=== PATIENT | female | born 1965 | race Caucasian/White ===

== ENCOUNTER → 2018-04-11 | Outpatient (CLI) | payer BC ==
--- NOTE | 2018-04-14 07:35 | MM ---
Reason for exam: screening (asymptomatic). Last mammogram was performed 1 year and 2 months ago. History: Patient is postmenopausal. Physical Findings: A clinical breast exam by your physician is recommended on an annual basis and results should be correlated with mammographic findings. MG 3D Screening Mammo W/Cad Bilateral CC and MLO view(s) were taken. Prior study comparison: February 08, 2017, bilateral MG screening mammo w CAD. November 25, 2015, bilateral MG 3d screening mammo w/cad. The breast tissue is heterogeneously dense. This may lower the sensitivity of mammography. There is no discrete abnormality. Asymmetric breast tissue right upper aspect, stable. ASSESSMENT: Negative, BI-RAD 1 RECOMMENDATION: Routine screening mammogram of both breasts in 1 year.
== END | disposition home or self-care (01) ==
LOC: RADMAMWWP 09:50
PROVIDERS: ATTEND Family Medicine
DX: Z12.31 Encounter for screening mammogram for malignant neoplasm of breast (principal)
CPT/HCPCS: 77063; 77067

== ENCOUNTER → 2019-05-15 | Outpatient (CLI) | payer BC ==
--- NOTE | 2019-05-15 13:14 | MM ---
Reason for exam: screening (asymptomatic). Last mammogram was performed 1 year and 1 month ago. History: Patient is postmenopausal. Physical Findings: A clinical breast exam by your physician is recommended on an annual basis and results should be correlated with mammographic findings. MG 3D Screening Mammo W/Cad Bilateral CC and MLO view(s) were taken. Prior study comparison: April 11, 2018, bilateral MG 3d screening mammo w/cad. February 08, 2017, bilateral MG screening mammo w CAD. The breast tissue is heterogeneously dense. This may lower the sensitivity of mammography. No suspicious abnormality. No significant changes when compared with prior studies. ASSESSMENT: Negative, BI-RAD 1 RECOMMENDATION: Routine screening mammogram of both breasts in 1 year. Manage patient on a clinical basis. Diffuse, nonfocal, bilatral breast tenderness. If there is focal pain diagnostic exam and ultrasound would be recommended.
== END | disposition home or self-care (01) ==
LOC: RADMAMWWP 09:52
PROVIDERS: ATTEND Family Medicine
DX: Z12.31 Encounter for screening mammogram for malignant neoplasm of breast (principal)
CPT/HCPCS: 77063; 77067

== ENCOUNTER 2020-01-07 16:42 | Emergency (ER) | payer BC, OTHER ==
[2020-01-07 17:01] VITALS: BP 124/78; PULSE 78; RESP 18
[2020-01-07 17:02] VITALS: TEMP 97.8
[2020-01-07] MEDS ORDERED: LIDOCAINE 1% INJ 10MG/ML (20 ML MDV) SQ ONE (17:16)
[2020-01-07] MEDS ORDERED: DIPH,PERTUS(ACELL)TETVAC-LF 0.5 ML VIAL IM ONE (17:16)
--- NOTE | 2020-01-07 17:33 | XR ---
EXAMINATION TYPE: XR finger RT DATE OF EXAM: 01/07/2020 COMPARISON: NONE HISTORY: Laceration TECHNIQUE: 3 views FINDINGS: There is soft tissue deformity at the anterior distal phalanx of the index finger right ayers d relate to laceration. I see no sign of a foreign body. There is no evidence of a fracture. Joint sp aces are normal. IMPRESSION: Laceration deformity. No fracture seen.
[2020-01-07] MEDS ORDERED: BACITRACIN OINT 1 EACH PACKET TOPICAL ONE (17:50)
--- NOTE | 2020-01-07 17:51 | ED ---
Wound/Laceration HPI - General Chief Complaint: Wound/Laceration Stated Complaint: [facility] hand injury Time Seen by Provider: 01/07/20 17:10 Source: patient, RN notes reviewed Mode of arrival: ambulatory Limitations: no limitations - History of Present Illness Initial Comments: This a 54-year-old female sent emergency Department chief complaint of laceratio n to her right hand second digit. Patient states she closed in a door at her work. 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 Patient is unsure when her last tetanus was. Patient states has 2 lacerations states her was significantly mild bleeding initially. - Related Data Previous Rx's Medication Instructions Recorded Acetaminophen-Codeine 300-30mg 1 tab PO Q6H PRN #20 tablet 06/09/14 [Tylenol #3] Ibuprofen [Motrin] 600 mg PO Q8HR PRN #30 tab 06/09/14 Ondansetron Odt [Zofran Odt] 4 mg PO Q8HR PRN #10 tab 06/09/14 Allergies Allergy/AdvReac Type Severity Reaction Status Date / Time Penicillins Allergy Unknown Verified 01/07/20 17:01 Childhood azithromycin [From Zithromax] AdvReac Nausea & Verified 01/07/20 17:01 Vomiting tramadol HCl [From Ultram] AdvReac Rash/Hives Verified 01/07/20 17:01 Review of Systems ROS Statement: Those systems with pertinent positive or pertinent negative responses have been documented in the HPI. ROS Other: All systems not noted in ROS Statement are negative. Past Medical History Past Medical History: Hypertension Additional Past Medical History / Comment(s): diverticulitits History of Any Multi-Drug Resistant Organisms: None Reported Additional Past Surgical History / Comment(s): diverticulitis Past Psychological History: No Psychological Hx Reported Smoking Status: Current every day smoker Past Alcohol Use History: Rare Past Drug Use History: None Reported General Exam Limitations: no limitations General appearance: alert, in no apparent distress Head exam: Present: atraumatic, normocephalic, normal inspection Eye exam: Present: normal appearance, PERRL, EOMI. Absent: scleral icterus, conjunctival injection, periorbital swelling Respiratory exam: Present: normal lung sounds bilaterally. Absent: respiratory distress, wheezes, rales, rhonchi, stridor Cardiovascular Exam: Present: regular rate, normal rhythm, normal heart sounds. Absent: systolic murmur, diastolic murmur, rubs, gallop, clicks Extremities exam: Present: other (Right hand second digit there is 21 cm lacerations on the distal portion patient has full range of motion neurovascular intact) Course Vital Signs 01/07/20 16:57 Temperature 97.8 F Pulse Rate 78 Respiratory 18 Rate Blood Pressure 124/78 O2 Sat by Pulse 99 Oximetry Procedures - Laceration Laceration #1 Consent Obtained: verbal consent Indication: laceration Site: hand Size (cm): 1 Description: irregular Depth: simple, single layer Anesthetic Used: lidocaine 1%, without epi Anesthesia Technique: local infiltration Amount (mls): 2 Pre-repair: wound explored, irrigated extensively, deep structures intact Type of Sutures: nylon Size of Sutures: 4-0 Number of Sutures: 3 Technique: simple, interrupted Patient Tolerated Procedure: well, no complications Laceration #2 Consent Obtained: verbal consent Indication: laceration Site: hand (Right) Size (cm): 1 Description: irregular Depth: simple, single layer Anesthetic Used: lidocaine 1%, without epi Anesthesia Technique: local infiltration Amount (mls): 2 Pre-repair: wound explored, irrigated extensively, deep structures intact Type of Sutures: nylon Size of Sutures: 4-0 Number of Sutures: 4 Technique: simple, interrupted Patient Tolerated Procedure: well, no complications Medical Decision Making - Medical Decision Making X-ray does not reveal any acute fracture. Patient to lacerations closed with 7 sutures. Return parameters discussed wound care was discussed Disposition Clinical Impression: Laceration of finger of right hand Disposition: HOME SELF-CARE Condition: Stable Instructions (If sedation given, give patient instructions): Care For Your Stitches (ED), Finger Laceration (ED) Additional Instructions: Has sutures removed in 10 days.Please return to the Emergency Department if symptoms worsen or any other concerns. Is patient prescribed a controlled substance at d/c from ED?: No Referrals: Jovi Santizo DO [Primary Care Provider] - 1-2 days Time of Disposition: 17:51
== END 2020-01-07 18:14 | disposition home or self-care (01) ==
LOC: EC 16:42
DX: S61.210A Laceration without foreign body of right index finger without damage to nail, initial encounter (principal); Z88.0 Allergy status to penicillin; Z88.1 Allergy status to other antibiotic agents; Z88.6 Allergy status to analgesic agent; F17.200 Nicotine dependence, unspecified, uncomplicated; Z23 Encounter for immunization; W23.0XXA Caught, crushed, jammed, or pinched between moving objects, initial encounter; Y92.69 Other specified industrial and construction area as the place of occurrence of the external cause; Y99.0 Civilian activity done for income or pay
CPT/HCPCS: 73140; 90715; 99283; 90471; 12001; J2001

== ENCOUNTER → 2020-04-15 | Outpatient (CLI) | payer BC ==
--- NOTE | 2020-04-15 11:59 | XR ---
EXAMINATION TYPE: XR sacrum coccyx, XR sacroiliac joint comp BILAT DATE OF EXAM: 04/15/2020 CLINICAL HISTORY: pain TECHNIQUE: Three views of the sacrum and coccyx are submitted. Bilateral SI joint evaluation was als o performed. COMPARISON: None Sacral alae appear symmetric. No evidence for fracture or bony lesion. Sacroiliac joints are within normal limits. Visualized coccygeal segments are free of fracture or lesion. IMPRESSION: Normal study
== END | disposition home or self-care (01) ==
LOC: RADXRYALE 11:12
PROVIDERS: ATTEND Physician Assistant Medical
DX: M53.3 Sacrococcygeal disorders, not elsewhere classified (principal)
CPT/HCPCS: 72202; 72220

== ENCOUNTER → 2020-08-01 | Outpatient (CLI) | payer BC ==
--- NOTE | 2020-08-01 13:10 | XR ---
EXAMINATION TYPE: XR abdomen 2V DATE OF EXAM: 08/01/2020 12:10 PM CLINICAL HISTORY: Bright red blood in stool TECHNIQUE: Single supine KUB image of the abdomen is obtained. COMPARISON: None. FINDINGS: Nonspecific, nonobstructive bowel gas pattern. There is stool and gas scattered throughout the colon. Presumed calcified pelvic phleboliths. No definite renal or ureteral calculi. Mild degener ative changes of the thoracic spine and hips. IMPRESSION: 1. Nonspecific, nonobstructive bowel gas pattern.
== END ==
LOC: RADXRYALE 11:57
PROVIDERS: ATTEND Physician Assistant Medical
DX: R10.817 Generalized abdominal tenderness (principal)
CPT/HCPCS: 74019

== ENCOUNTER → 2020-09-16 | Outpatient (CLI) | payer BC ==
--- NOTE | 2020-09-20 08:56 | MM ---
Reason for exam: screening (asymptomatic). Last mammogram was performed 1 year and 4 months ago. History: Patient is postmenopausal. Physical Findings: A clinical breast exam by your physician is recommended on an annual basis and results should be correlated with mammographic findings. MG 3D Screening Mammo W/Cad Bilateral CC and MLO view(s) were taken. Prior study comparison: May 15, 2019, bilateral MG 3d screening mammo w/cad. April 11, 2018, bilateral MG 3d screening mammo w/cad. There are scattered fibroglandular densities. ASSESSMENT: Negative, BI-RAD 1 RECOMMENDATION: Routine screening mammogram of both breasts in 1 year.
== END | disposition home or self-care (01) ==
LOC: RADMAMWWP 11:11
PROVIDERS: ATTEND Family Medicine
DX: Z12.31 Encounter for screening mammogram for malignant neoplasm of breast (principal); Z78.0 Asymptomatic menopausal state
CPT/HCPCS: 77063; 77067

== ENCOUNTER → 2022-11-23 | Outpatient (CLI) | payer BC ==
--- NOTE | 2022-11-26 10:07 | MM ---
Reason for Exam: Screening (asymptomatic). Last mammogram was performed 2 year(s) and 2 month(s) ago. Patient History: Menarche at age 12. First Full-Term at age 22. Postmenopausal. Risk Values: Jolly 5 year model risk: 1.2%. NCI Lifetime model risk: 7.9%. Prior Study Comparison: 04/11/2018 Bilateral Screening Mammogram, [facility]. 05/15/2019 Bilateral Screening Mammogram, [facility]. 09/16/2020 Bilateral Screening Mammogram, [facility]. Tissue Density: There are scattered fibroglandular densities. Findings: Analyzed By CAD. There is no suspicious group of microcalcifications or new suspicious mass in either breast. Overall Assessment: Negative, BI-RAD 1 Management: Screening Mammogram of both breasts in 1 year. . Patient should continue monthly self-breast exams. A clinical breast exam by your physician is recommended on an annual basis. This exam should not preclude additional follow-up of suspicious palpable abnormalities. Note on Jolly scores and lifetime risk: 1. A Jolly score greater than 3% is considered moderate risk. If this is the case, consider specialist referral to assess eligibility for a risk reducing agent. 2. If overall lifetime risk for the development of breast cancer is 20% or higher, the patient may qualify for future screening with alternating mammogram and breast MRI. Electronically signed and approved by: Ziggy Reyes M.D. Radiologis
== END | disposition home or self-care (01) ==
LOC: RADMAMWWP 14:59
PROVIDERS: ATTEND Family Medicine
DX: Z12.31 Encounter for screening mammogram for malignant neoplasm of breast (principal); Z78.0 Asymptomatic menopausal state
CPT/HCPCS: 77063; 77067

== ENCOUNTER → 2023-06-21 | Outpatient (CLI) | payer BC ==
--- NOTE | 2023-06-21 10:24 | XR ---
EXAMINATION TYPE: XR lumbosacral spine min 4V DATE OF EXAM: 06/21/2023 CLINICAL HISTORY: pain COMPARISON: NONE TECHNIQUE: Frontal, lateral, and oblique images of the lumbar spine are obtained. FINDINGS: There are 5 lumbar type vertebral bodies identified. The lumbar spine shows satisfactory alignment without evidence of acute fracture or dislocation. Vertebral body heights are within normal limits. Vacuum disc at L5-S1. Mild degenerative narrowing at L1-2 and L2-3. Mild scattered ventral s pondylosis. Moderate lower lumbar facet joint arthropathy. The overlying soft tissue appears unrema rkable. IMPRESSION: No acute fracture or dislocation is seen in the lumbar spine.ICD 10 NO FRACTURE, INITIAL EVALUATION
--- NOTE | 2023-06-21 10:26 | XR ---
EXAMINATION TYPE: XR cervical spine comp DATE OF EXAM: 06/21/2023 CLINICAL HISTORY: pain COMPARISON: NONE TECHNIQUE: Frontal, lateral, oblique, swimmers, and open mouth view of the cervical spine are obtaine d. FINDINGS: The cervical spine is visualized in its entirety from C1 thru the top of T1 level. It is s atisfactory in alignment without evidence of acute fracture or dislocation. The pre-vertebral soft t issue appears within normal limits. Mild degenerative disc space narrowing C5-6 and C6-7. The C1-C2 a rticulation is unremarkable on the open mouth view. The oblique images are within normal limits. IMPRESSION: No acute fracture or dislocation is seen in the cervical spine.ICD 10 NO FRACTURE, INITI AL EVALUATION
== END | disposition home or self-care (01) ==
LOC: RADXRYALE 09:57
PROVIDERS: ATTEND Physician Assistant Medical
DX: M54.41 Lumbago with sciatica, right side (principal)
CPT/HCPCS: 72050; 72110

== ENCOUNTER 2024-05-25 17:57 | Emergency (ER) | payer BC, OTHER ==
--- NOTE | 2024-05-25 18:26 | ED ---
General Adult HPI - General Chief complaint: Fall Stated complaint: JDR-Nuad-vjjbdv/L hand injury Time Seen by Provider: 05/25/24 18:11 Source: patient, RN notes reviewed Mode of arrival: ambulatory Limitations: no limitations - History of Present Illness Initial comments: Patient is a 59-year-old female present to the emergency department with a fall. Injury occurred prior to arrival. Patient was walking and tripped over a small crack in the cement. Patient went forward. Patient did crack 1 or 2 of her teeth. Patient has mild discomfort left facial region and bruising. Patient has discomfort left hand. No loss of consciousness. No neck or back pain. No chest pain or dyspnea. No abdominal pain. - Related Data Previous Rx's Medication Instructions Recorded Acetaminophen-Codeine 300-30mg 1 tab PO Q6H PRN #20 tablet 06/09/14 [Tylenol #3] Ibuprofen [Motrin] 600 mg PO Q8HR PRN #30 tab 06/09/14 Ondansetron Odt [Zofran Odt] 4 mg PO Q8HR PRN #10 tab 06/09/14 Allergies Allergy/AdvReac Type Severity Reaction Status Date / Time Penicillins Allergy Unknown Verified 05/25/24 18:07 Childhood azithromycin [From Zithromax] AdvReac Nausea & Verified 05/25/24 18:07 Vomiting tramadol HCl [From Ultram] AdvReac Rash/Hives Verified 05/25/24 18:07 Review of Systems ROS Statement: Those systems with pertinent positive or pertinent negative responses have been documented in the HPI. ROS Other: All systems not noted in ROS Statement are negative. Constitutional: Denies: fever Eyes: Denies: eye pain ENT: Reports: as per HPI. Denies: ear pain Respiratory: Denies: cough Cardiovascular: Denies: chest pain Endocrine: Denies: fatigue Gastrointestinal: Denies: abdominal pain Musculoskeletal: Reports: as per HPI Past Medical History Past Medical History: Hypertension Additional Past Medical History / Comment(s): diverticulitits History of Any Multi-Drug Resistant Organisms: None Reported Additional Past Surgical History / Comment(s): diverticulitis Past Psychological History: No Psychological Hx Reported Smoking Status: Current every day smoker Past Alcohol Use History: Rare Past Drug Use History: None Reported General Exam Limitations: no limitations General appearance: alert, in no apparent distress Head exam: Present: normocephalic Eye exam: Present: normal appearance, PERRL, EOMI ENT exam: Present: other (Small crack upper left central incisor, less than 10% of the tooth. Left upper canine with With apparent crack. No significant movement of teeth. Left maxillary region with mild tenderness and swelling) Neck exam: Present: normal inspection. Absent: tenderness Respiratory exam: Present: normal lung sounds bilaterally Cardiovascular Exam: Present: regular rate, normal rhythm GI/Abdominal exam: Present: soft. Absent: tenderness Extremities exam: Present: other (Left hand with mild tenderness proximal thumb and nonspecific left pinky. Abrasions present. Good strength.) Neurological exam: Present: alert, oriented X3, CN II-XII intact. Absent: motor sensory deficit Expanded Neurological exam: Present: protecting the airway Speech: Present: fluid speech Cranial nerves: EOM's Intact: Normal Motor strength exam: RUE: 5, LUE: 5, RLE: 5, LLE: 5 Eye Response: (4) open spontaneously Motor Response: (6) obeys commands Verbal Response: (5) oriented Psychiatric exam: Present: normal affect, normal mood Skin exam: Present: abrasion Course Vital Signs 05/25/24 18:04 Temperature 98.0 F Pulse Rate 81 Respiratory 20 Rate Blood Pressure 116/77 O2 Sat by Pulse 97 Oximetry Medical Decision Making - Medical Decision Making Was pt. sent in by a medical professional or institution ([facility], [employer], urgent care, hospital, or care home...) When possible be specific @ -No Did you speak to anyone other than the patient for history (EMS, parent, family, police, friend...)? What history was obtained from this source @ -No Did you review nursing and triage notes (agree or disagree)? Why? @ -I reviewed and agree with nursing and triage notes Were old charts reviewed (outside hosp., previous admission, EMS record, old EKG, old radiological studies, urgent care reports/EKG's, care home records)? Report findings @ -No old charts were reviewed Differential Diagnosis (chest pain, altered mental status, abdominal pain women, abdominal pain men, vaginal bleeding, weakness, fever, dyspnea, syncope, headache, dizziness, GI bleed, back pain, seizure, CVA, palpatations, mental health, musculoskeletal)? @ -[facility] musculoskeletal EKG interpreted by me (3pts min.). @ -As above X-rays interpreted by me (1pt min.). @ -Left hand x-ray without evidence of fracture CT interpreted by me (1pt min.). @ -None done U/S interpreted by me (1pt. min.). @ -None done What testing was considered but not performed or refused? (CT, X-rays, U/S, labs)? Why? @ -Consider CT scan of facial bones however after discussion with patient there is felt to be low risk of injury and patient does not want to have done. What meds were considered but not given or refused? Why? @ -None Did you discuss the management of the patient with other professionals (professionals i.e. , PA, [employer]ENT[employer], lab, RT, psych nurse, transition social worker, insurance claims processor, teacher, commanding officer traffic division, shoe parts caser)? Give summary @ -No Was smoking cessation discussed for >3mins.? @ -No Was critical care preformed (if so, how long)? @ -No Were there social determinants of health that impacted care today? How? (Homelessness, low income, unemployed, alcoholism, drug addiction, transportation, low edu. Level, literacy, decrease access to med. care, assisted, rehab)? @ -No Was there de-escalation of care discussed even if they declined (Discuss DNR or withdrawal of care, Hospice)? DNR status @ -No What co-morbidities impacted this encounter? (DM, HTN, Smoking, COPD, CAD, Cancer, CVA, ARF, Chemo, Hep., AIDS, mental health diagnosis, sleep apnea, morbid obesity)? @ -None Was patient admitted / discharged? Hospital course, mention meds given and route, prescriptions, significant lab abnormalities, going to OR and other pertinent info. @ -Patient presents with fall. Patient has dental injury. Patient does have injury to hand with negative x-rays. Patient will be discharged with follow-up with primary care physician and dentist. Patient updated. Undiagnosed new problem with uncertain prognosis? @ -No Drug Therapy requiring intensive monitoring for toxicity (Heparin, Nitro, Insulin, Cardizem)? @ -No Were any procedures done? @ -No Diagnosis/symptom? @ -Dental injury. Hand contusion Acute, or Chronic, or Acute on Chronic? @ -Acute, acute Uncomplicated (without systemic symptoms) or Complicated (systemic symptoms)? @ -Default Side effects of treatment? @ -No Exacerbation, Progression, or Severe Exacerbation? @ -No Poses a threat to life or bodily function? How? (Chest pain, [place], [place], pneumonia, PE, COPD, DKA, ARF, appy, cholecystitis, CVA, Diverticulitis, Homicidal, Suicidal, threat to staff... and all critical care pts) @ -No Disposition Clinical Impression: Dental injury Disposition: HOME SELF-CARE Condition: Stable Instructions (If sedation given, give patient instructions): Acute Dental Trauma (ED), Contusion in Adults (ED) Additional Instructions: Please do follow-up with your dentist as soon as possible. Call first thing in the morning. Please also follow-up with your primary care physician. Antibiotic ointment to hand abrasions. Return for increased pain, worsening symptoms or other concerns. Is patient prescribed a controlled substance at d/c from ED?: No Referrals: Jovi Santizo DO [Primary Care Provider] - 1-2 days Time of Disposition: 19:20
--- NOTE | 2024-05-25 19:00 | XR ---
EXAMINATION TYPE: XR hand complete LT DATE OF EXAM: 05/25/2024 6:32 PM COMPARISON: 08/10/2011. CLINICAL INDICATION: Female, 59 years old with history of fall; [facility], pain TECHNIQUE: XR hand complete LT 3 views were obtained. FINDINGS: Normal alignment of the visualized joints. No acute osseous pathology is identified. No e vidence of soft tissue swelling. Multifocal degeneration changes with joint space narrowing and osteo phyte formation. coarsened trabeculae noted at the distal aspect of the proximal phalanx of the fourt h digit. IMPRESSION: No acute osseous pathology. 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 [facility], , 05/25/2024 6:57 PM
[2024-05-25 19:57] VITALS: BP 127/82; PULSE 78; RESP 16; TEMP 97.9
== END 2024-05-25 19:55 | disposition home or self-care (01) ==
LOC: EC 17:57
DX: S60.012A Contusion of left thumb without damage to nail, initial encounter (principal); S60.052A Contusion of left little finger without damage to nail, initial encounter; K03.81 Cracked tooth; F17.200 Nicotine dependence, unspecified, uncomplicated; Z88.0 Allergy status to penicillin; Z88.1 Allergy status to other antibiotic agents; Z88.5 Allergy status to narcotic agent; W01.0XXA Fall on same level from slipping, tripping and stumbling without subsequent striking against object, initial encounter; Y93.01 Activity, walking, marching and hiking
CPT/HCPCS: 99283

== ENCOUNTER → 2024-05-26 | Outpatient (CLI) | payer OTHER ==
--- NOTE | 2024-05-26 12:01 | XR ---
EXAMINATION TYPE: XR wrist complete LT DATE OF EXAM: 05/26/2024 11:55 AM COMPARISON: None. CLINICAL INDICATION: Female, 59 years old with history of S63.502A Left wrist pain, pain TECHNIQUE: XR wrist complete LT XX views were obtained. FINDINGS: There is no acute fracture/dislocation evident. Severe degenerative change first carpometa carpal joint. Stable well-circumscribed ossific densities adjacent to the ulnar styloid process. The overlying soft tissue appears unremarkable. Bony osteopenia noted. IMPRESSION: No acute fracture or dislocation seen. [facility], , 05/26/2024 11:59 AM
--- NOTE | 2024-05-26 12:13 | CT ---
EXAMINATION TYPE: CT facial bones wo con DATE OF EXAM: 05/26/2024 12:07 PM COMPARISON: None. CLINICAL INDICATION: Female, 59 years old with history of S00.83XA CONTUSION OF OTHER PART OF HEAD S6 3.502A, fall, bruising around left eye, pain TECHNIQUE: Unenhanced CT of the facial bones was performed in the axial and coronal planes. Bone and soft tissue window settings are submitted. CT DLP: 615.9 mGycm, Automated exposure control for dose reduction was used. Contrast used: mL of , (none if empty) FINDINGS: Soft tissue swelling. I do not see evidence for displaced facial bone fracture or depressed facial bone fracture. The globes are intact. Paranasal sinuses are well-aerated. The bases of the maxillary sinuses. Nasal septum is deviated IMPRESSION: 1. No evidence for depressed or displaced facial bone fracture. [facility], , 05/26/2024 12:10 PM
== END | disposition home or self-care (01) ==
LOC: RADCTMAIN 11:32
PROVIDERS: ATTEND Emergency Medicine
DX: S00.83XA Contusion of other part of head, initial encounter (principal); S63.502A Unspecified sprain of left wrist, initial encounter; S02.5XXA Fracture of tooth (traumatic), initial encounter for closed fracture; W19.XXXA Unspecified fall, initial encounter
CPT/HCPCS: 70486

== ENCOUNTER → 2024-06-05 | Outpatient (CLI) | payer OTHER ==
--- NOTE | 2024-06-05 10:53 | XR ---
EXAMINATION TYPE: XR hand complete LT, XR wrist complete LT DATE OF EXAM: 06/05/2024 CLINICAL INDICATION: Female, 59 years old with history of S63.502D UNSPECIFIED SPRAIN OF LEFT WRIST S 60.222D, pain TECHNIQUE: Frontal, lateral and oblique images of the left wrist and hand are obtained. Fourth scaph oid view left wrist is acquired. COMPARISON: Left wrist x-ray May 26, 2024. Left hand x-ray May 25, 2024. FINDINGS: Osseous structures are demineralized which is noted to lower radiographic sensitivity. Susp ect old avulsion type fracture from the ulnar styloid is unchanged from prior. Advanced degenerative change base of first metacarpal is redemonstrated There is no acute fracture/dislocation evident in t he left wrist were hand. The joint spaces in the left hand appear within normal limits. The overlyin g soft tissue appears unremarkable. IMPRESSION: There is no acute fracture or dislocation in the left wrist or the left hand. No signifi cant change from most recent prior x-rays. [facility], , 06/05/2024 10:50 AM
== END | disposition home or self-care (01) ==
LOC: RADXRMAIN 10:29
PROVIDERS: ATTEND Emergency Medicine
DX: S60.222D Contusion of left hand, subsequent encounter (principal); S63.502D Unspecified sprain of left wrist, subsequent encounter